=== PATIENT | male | born 1985 | race Caucasian/White ===

== ENCOUNTER 2019-09-14 07:21 | Outpatient (CLI) | payer BC, SELFPAY ==
[2019-09-17 22:48] LABS: SARS-CoV-2 RNA Undetected (Undetected); SARS-CoV-2 Specimen Source Nasopharynx
== END 2019-09-14 07:41 ==
PROVIDERS: PCP Physician Assistant; Visit Provider Internal Medicine
DX: Z11.59 Encounter for screening for other viral diseases (principal)
CPT/HCPCS: U0003

== ENCOUNTER 2020-10-14 14:10 | Outpatient (REF) | payer BC, SELFPAY ==
[2020-10-15 23:59] LABS: COVID-19 RT-PCR UVMMC Result Negative (Negative)
== END 2020-10-14 14:11 | disposition home or self-care (01) ==
LOC: LBN 14:10
PROVIDERS: PCP Physician Assistant; Visit Provider Nurse Practitioner Family
DX: Z20.822 Contact with and (suspected) exposure to COVID-19 (principal); Z02.9 Encounter for administrative examinations, unspecified
CPT/HCPCS: U0003

== ENCOUNTER 2021-01-16 20:35 | Outpatient (REF) | payer BC, SELFPAY ==
[2021-01-18 13:14] LABS: COVID-19 RT-PCR UVMMC Result Negative (Negative)
== END 2021-01-16 20:36 | disposition home or self-care (01) ==
LOC: NCHCN 20:35
PROVIDERS: PCP Physician Assistant; Visit Provider Physician Assistant
DX: Z20.822 Contact with and (suspected) exposure to COVID-19 (principal)
CPT/HCPCS: U0003

== ENCOUNTER 2021-05-31 19:52 | Outpatient (REF) | payer BC, SELFPAY ==
[2021-05-31 19:34] LABS: ALT 48 U/L (16-63); AST 20 U/L (15-37); Albumin 4.5 g/dL (3.4-5.0); Alkaline Phosphatase 83 U/L (46-116); Anion Gap 8.9 mmol/L (3-11); BUN 19 mg/dL (7-18); Bilirubin, Total 0.6 mg/dL (0.2-1.0); CO2 29.1 mmol/L (21.0-32.0); CREATININE 0.9 mg/dL (0.70-1.30); Calcium 9.4 mg/dL (8.5-10.1); Calculated LDL 155 mg/dL (<100); Chloride 102 mmol/L (98-107); Cholesterol 223 mg/dL (<200); Glucose 96 mg/dL (74-106); HDL Cholesterol 46 mg/dL (40-60); Potassium 4.4 mmol/L (3.5-5.1); Sodium 140 mmol/L (136-145); Total Protein 7.9 g/dL (6.4-8.2); Triglyceride 114 mg/dL (<150)
== END 2021-05-31 19:53 | disposition home or self-care (01) ==
LOC: NCHCN 19:52
PROVIDERS: PCP Physician Assistant; Visit Provider Physician Assistant
DX: Z00.00 Encounter for general adult medical examination without abnormal findings (principal); Z13.1 Encounter for screening for diabetes mellitus; Z13.220 Encounter for screening for lipoid disorders
CPT/HCPCS: 80053; 80061

== ENCOUNTER → 2021-11-01 19:01 | Outpatient (CLI) | payer BC, SELFPAY ==
--- NOTE | 2021-11-01 20:17 | DI.RAD_ITS ---
Exam(s) XR CHEST 2V PA LATERAL EXAM: XR CHEST 2V PA LATERAL CLINICAL HISTORY: Cough. TECHNIQUE: 2D digital imaging was performed. COMPARISON: No exams were available for comparison FINDINGS: 2 views: Heart size is normal. The mediastinum is not widened. Right lung is clear. There is slightly increased markings in the lower left lung field but no conflu ent infiltrate evident on both views. No pleural effusions. No pneumothorax. IMPRESSION: Mild increased markings left lung base region. No pleural effusions. Appropriate follow-up recommen ded DATA REPOSITORY: RADIATION DOSE DELIVERED:
--- NOTE | 2021-11-01 20:30 | DI.VRAD_ITS ---
PROCEDURE INFORMATION: Exam: XR Chest Exam date and time: 11/01/2021 8:08 PM Age: 36 years old Clinical indication: Cough TECHNIQUE: Imaging protocol: Radiologic exam of the chest. Views: 2 views. COMPARISON: No relevant prior studies available. FINDINGS: Lungs: No focal airspace consolidation. No interstitial ground-glass features or pneumonitis evident. No edema evident. Pleural spaces: No pleural effusion. Heart/Mediastinum: Normal heart size. Bones/joints: Unremarkable skeletal structures. IMPRESSION: 1. No focal airspace consolidation. 2. No pleural effusions. 3. Normal heart and mediastinal contour. Dictated and Authenticated by: Go Worley MD. Ordering:MADELEINE Fink MD
== END ==
PROVIDERS: PCP Physician Assistant; Visit Provider Physician Assistant Medical
DX: R05.9 Cough, unspecified (principal)
CPT/HCPCS: 71046

== ENCOUNTER 2022-06-07 10:41 | Outpatient (REF) | payer BC, SELFPAY ==
[2022-06-07 19:21] LABS: ALT 64 U/L (16-63); AST 26 U/L (15-37); Albumin 4.5 g/dL (3.4-5.0); Alkaline Phosphatase 85 U/L (46-116); Anion Gap 6.8 mmol/L (3-11); BUN 18 mg/dL (7-18); Bilirubin, Total 0.6 mg/dL (0.2-1.0); CO2 30.2 mmol/L (21.0-32.0); Calcium 9.9 mg/dL (8.5-10.1); Calculated LDL 169 mg/dL (<100); Chloride 103 mmol/L (98-107); Cholesterol 240 mg/dL (<200); Estimated GFR 98.18 (mL/min/1.73m2); Glucose 98 mg/dL (74-106); HDL Cholesterol 48 mg/dL (40-60); Potassium 4.1 mmol/L (3.5-5.1); Sodium 140 mmol/L (136-145); Total Protein 8.3 g/dL (6.4-8.2); Triglyceride 115 mg/dL (<150)
== END 2022-06-07 10:42 | disposition home or self-care (01) ==
LOC: NCHCN 10:41
PROVIDERS: PCP Physician Assistant; Visit Provider Physician Assistant
DX: Z00.00 Encounter for general adult medical examination without abnormal findings (principal); E78.5 Hyperlipidemia, unspecified
CPT/HCPCS: 80053; 80061

== ENCOUNTER 2023-06-10 12:22 | Outpatient (REF) | payer BC, SELFPAY ==
[2023-06-10 19:02] LABS: ALT 51 U/L (16-63); AST 20 U/L (15-37); Albumin 4.2 g/dL (3.4-5.0); Alkaline Phosphatase 79 U/L (46-116); Anion Gap 9.5 mmol/L (3-11); BUN 19 mg/dL (7-18); Bilirubin, Total 0.5 mg/dL (0.2-1.0); CO2 29.5 mmol/L (21.0-32.0); CREATININE 0.9 mg/dL (0.70-1.30); Calcium 9.1 mg/dL (8.5-10.1); Calculated LDL 153 mg/dL (<100); Chloride 104 mmol/L (98-107); Cholesterol 225 mg/dL (<200); Estimated GFR 110.73 (mL/min/1.73m2); Glucose 93 mg/dL (74-106); HDL Cholesterol 49 mg/dL (40-60); Sodium 143 mmol/L (136-145); Total Protein 7.7 g/dL (6.4-8.2); Triglyceride 118 mg/dL (<150)
== END 2023-06-10 12:23 | disposition home or self-care (01) ==
LOC: NCHCN 12:22
PROVIDERS: PCP Physician Assistant; Referring Provider Physician Assistant; Visit Provider Physician Assistant
DX: E78.5 Hyperlipidemia, unspecified (principal)
CPT/HCPCS: 80053; 80061

== ENCOUNTER 2023-07-01 05:20 | Outpatient (CLI) | payer BC, SELFPAY ==
[2023-07-01] MEDS: Levalbuterol HFA 15 GM INH 4 PUFF IH (09:10)
[2023-07-01] MEDS: Inhaler, Assist Device 1 EACH MC (09:10)
--- NOTE | 2023-07-04 12:48 | W.PFT ---
Date of service: 07/01/23 Time of Service: 07:59 Pulmonary Function Test Result Indications: Dyspnea Interpretation Spirometry: There is moderate airflow limitation. There is a significant bronchodilator response. Lung Volumes: There is hyperinflation and air trapping Diffusion Capacity: Normal diffusion Airway Pressure: Increased airways resistance Impression Moderate airflow obstruction and significant bronchodilator response with air trapping and a normal diffusion. This may represent chronic bronchitis (COPD), uncontrolled severe asthma or asthma-COPD overlap syndrome. Clinical Correlation therefore is recommended.
== END 2023-07-01 05:21 | disposition home or self-care (01) ==
LOC: RT 05:20
PROVIDERS: PCP Physician Assistant; Visit Provider Physician Assistant
DX: R06.00 Dyspnea, unspecified (principal); R94.2 Abnormal results of pulmonary function studies
CPT/HCPCS: 94060; 94726; 94729

== ENCOUNTER → 2023-07-02 13:07 | Outpatient (CLI) | payer BC, SELFPAY ==
--- NOTE | 2023-07-02 13:11 | DI.RAD_ITS ---
Exam(s) XR CHEST 2V PA LATERAL EXAM: XR CHEST 2V PA LATERAL CLINICAL HISTORY: productive cough, shortness of breath, wheezing,pneumonia,j18.9 TECHNIQUE: 2D digital imaging was performed of the chest. Two images were obtained. PA and lateral views were obtained. COMPARISON: CR,XR XR CHEST 2V PA LATERAL from 11/01/2021 FINDINGS: MEDIASTINUM: Normal. HEART: Normal. PULMONARY VASCULATURE: Normal. LUNGS: Clear. PLEURAL SPACE: No pleural effusion or pneumothorax. BONE:Within normal limits for the patient's age. OTHER FINDINGS:Normal. IMPRESSION: No acute pulmonary findings. DATA REPOSITORY: RADIATION DOSE DELIVERED:
== END ==
PROVIDERS: PCP Physician Assistant; Visit Provider Physician Assistant Medical
DX: J18.9 Pneumonia, unspecified organism (principal)
CPT/HCPCS: 71046

== ENCOUNTER 2023-08-27 17:06 | Outpatient (REF) | payer BC, SELFPAY ==
[2023-09-04 12:53] LABS: Misc Referral (MAYO) See Comments
== END 2023-08-27 17:07 | disposition home or self-care (01) ==
LOC: NCHCN 17:06
PROVIDERS: PCP Physician Assistant; Visit Provider Internal Medicine
DX: J33.0 Polyp of nasal cavity (principal)
CPT/HCPCS: 86003

== ENCOUNTER 2023-12-18 17:19 | Outpatient (REF) | payer BC, SELFPAY ==
[2023-12-18 19:27] LABS: Abs Immature Grans 0.03 10^3/uL (0.0-0.06); Absolute Basophil Count 0.05 10^3/uL (0.0-0.2); Absolute Eosinophil Count 0.54 10^3/uL (0.0-0.7); Absolute Lymphocyte Count 2.01 10^3/uL (1.2-3.4); Absolute Monocyte Count 0.64 10^3/uL (0.1-0.8); Absolute Neutrophil Count 3.61 10^3/uL (1.2-6.7); Basophils % 0.7 %; Eosinophils % 7.8 %; HCT 46.7 % (40.0-50.0); HGB 15.6 g/dL (13.5-17.5); Immature Grans % 0.4 %; Lymphocytes % 29.2 %; MCH 29.4 pg (27.0-33.0); MCHC 33.4 % (32.0-36.0); MCV 88 fL (80-95); MPV 9.7 fL (8.0-11.0); Monocytes % 9.3 %; Neutrophils % 52.6 %; Platelet Count 325 10^3/uL (130-400); RDW 11.7 % (11.8-14.1); RDW-SD 37.4 fL; WBC 6.88 10^3/uL (4.4-10.8)
[2023-12-18 19:41] LABS: ALT 53 U/L (16-63); AST 26 U/L (15-37); Albumin 4.3 g/dL (3.4-5.0); Alkaline Phosphatase 80 U/L (46-116); BUN 14 mg/dL (7-18); Bilirubin, Total 0.66 mg/dL (0.2-1.0); Calcium 9.6 mg/dL (8.5-10.1); Chloride 104 mmol/L (98-107); Estimated GFR 97.58 (mL/min/1.73m2); Glucose 88 mg/dL (74-106); Potassium 4.8 mmol/L (3.5-5.1); Sodium 142 mmol/L (136-145); Total Protein 7.8 g/dL (6.4-8.2)
== END 2023-12-18 17:20 | disposition home or self-care (01) ==
LOC: NCHCN 17:19
PROVIDERS: PCP Physician Assistant; Visit Provider Physician Assistant
DX: Z01.818 Encounter for other preprocedural examination (principal)
CPT/HCPCS: 80053; 85025

== ENCOUNTER 2024-06-16 10:29 | Outpatient (REF) | payer BC, SELFPAY ==
[2024-06-16 20:58] LABS: ALT 39 U/L (16-63); AST 22 U/L (15-37); Albumin 4.3 g/dL (3.4-5.0); Alkaline Phosphatase 89 U/L (46-116); Anion Gap 7.8 mmol/L (3-11); BUN 16 mg/dL (7-18); Bilirubin, Total 0.6 mg/dL (0.2-1.0); CO2 28.2 mmol/L (21.0-32.0); Calcium 9.5 mg/dL (8.5-10.1); Calculated LDL 127 mg/dL (<100); Chloride 107 mmol/L (98-107); Cholesterol 193 mg/dL (<200); Estimated GFR 96.97 (mL/min/1.73m2); Glucose 97 mg/dL (74-106); HDL Cholesterol 51 mg/dL (>or=40); Potassium 4.5 mmol/L (3.5-5.1); Sodium 143 mmol/L (136-145); Total Protein 7.7 g/dL (6.4-8.2); Triglyceride 76 mg/dL (<150)
== END 2024-06-16 10:30 | disposition home or self-care (01) ==
LOC: NCHCN 10:29
PROVIDERS: PCP Physician Assistant; Visit Provider Physician Assistant
DX: E78.5 Hyperlipidemia, unspecified (principal)
CPT/HCPCS: 80053; 80061

== ENCOUNTER 2024-07-15 13:06 | Outpatient (REF) | payer BC, SELFPAY ==
--- NOTE | 2024-07-14 08:45 | SKI_PTH ---
PATIENT: Carlos Dent LOC: [facility] U#:[id number] AGE/SX: 39/M ROOM: RE07/15/[address]: Sihlpa Templeton : 1985 BED: DIS: 07/15/2024 SPEC #: [id number] RECD: 07/15/24 13:09 STATUS: MELE CASAS #: [id number] JOSELIN: 07/14/24 08:[address]: Shilpa Templeton DEPT: Surgical Specimen RECD BY: Saniya Appiah Tissues: 1 - SKIN BIOPSY(SHAVE/PUNCH) Procedures: SKIN LEVEL 4 Comments: [id number]
== END 2024-07-15 13:07 | disposition home or self-care (01) ==
LOC: LBN 13:06
PROVIDERS: PCP Physician Assistant; Visit Provider Physician Assistant
DX: D48.5 Neoplasm of uncertain behavior of skin (principal)
CPT/HCPCS: 88305